=== PATIENT | male | born 2000 | race Caucasian/White ===

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

== ENCOUNTER 2022-08-30 09:50 | Emergency (ER) | payer MEDICAID, OTHER ==
[~2022-08-30] VITALS: Ht 185.4 cm; Wt 127.3 kg
[~2022-08-30 09:50] MED LIST: ONDA4TAB6 PO
[2022-08-30 09:52] VITALS: BP 183/98
[2022-08-30] MEDS ORDERED: LEVO-65 PO (09:58)
[2022-08-30] MEDS ORDERED: LIDO20SO16 PO (09:58)
[2022-08-30] MEDS ORDERED: PRED10TA23 PO (09:58)
== END 2022-08-30 10:08 | disposition home or self-care (01) ==
LOC: ER 09:50
DX: J02.0 Streptococcal pharyngitis (principal); Z88.0 Allergy status to penicillin; Z88.5 Allergy status to narcotic agent; Z79.899 Other long term (current) drug therapy; Z79.1 Long term (current) use of non-steroidal anti-inflammatories (NSAID)
CPT/HCPCS: 99283